=== PATIENT | female | born 1965 | race Caucasian/White ===

== ENCOUNTER 2017-06-22 16:30 | Outpatient (CLI) | payer SELFPAY ==
[~2017-06-22 16:30] MED LIST: CEFD300C3 PO; HYDR1TAB66 PO; LORA0.5T PO; OXYC-12 PO; SERT25TA PO; SULF1TAB38 PO
== END 2017-06-22 17:30 | disposition home or self-care (01) ==
LOC: SLEEP 16:30
PROVIDERS: ATTEND Otolaryngology Otolaryngology/Facial Plastic Surgery
DX: R06.83 Snoring (principal); G47.10 Hypersomnia, unspecified

== ENCOUNTER → 2017-11-07 | Outpatient (CLI) | payer BC ==
[~2017-11-07] MED LIST changes: +CATHETER FLUSH 10 ML SYR IV PRN
--- NOTE | 2017-11-07 18:10 | Diagnostic Imaging Report ---
EXAM: Nuclear medicine hepatobiliary scan INDICATION: Abdominal pain COMPARISON: There are no prior studies available for comparison. FINDINGS: This exam was performed following the administration of 5.36 mCi of Choletec and 8 ounces of Ensure. There is uptake of the radiotracer by the gallbladder before 30 minutes. This would rule against the diagnosis of acute cholecystitis. There is also extension of the radiotracer into the small bowel indicating that the common bile duct is nonobstructed. The ejection fraction is 56.5% (normal greater than 35%). IMPRESSION: 1. There is no evidence for acute cholecystitis or for obstruction of the common bile duct. 2. The ejection fraction is 56.5% and within normal limits. Dictated by: Dictated on workstation # [id number]
== END ==
LOC: CARD 12:10
PROVIDERS: ATTEND Surgery
DX: R10.11 Right upper quadrant pain (principal)
CPT/HCPCS: 78227

== ENCOUNTER → 2018-02-07 | Outpatient (CLI) | payer BC ==
[~2018-02-07] MED LIST changes: -CATHETER FLUSH 10 ML SYR IV PRN; +IOHEXOL 350 MG/ML 150 ML (OMNIPAQUE 350) VIAL IV ONE; +NS 250 ML (IVPB) BAG IV ONE
[2018-02-07 12:16] LABS: BUN/CREATININE RATIO 22; CREATININE SERUM 0.76 MG/DL (0.60-1.30); GFR ESTIMATED > 60
--- NOTE | 2018-02-07 13:09 | Diagnostic Imaging Report ---
PROCEDURE: CT angiography of the chest with contrast. TECHNIQUE: Multiple contiguous axial images were obtained through the chest after uneventful bolus administration of intravenous contrast. Reconstructed CTA MIP acquisitions were also performed. INDICATION: Dyspnea. COMPARISON: None available. FINDINGS: Vasculature: No pulmonary emboli. No CT evidence of pulmonary hypertension or right ventricular strain. Thoracic aorta is normal in caliber. No aortic dissection or pseudoaneurysm. Heart and mediastinum: Visualized thyroid is normal. No supraclavicular, axillary, or intra-thoracic lymphadenopathy. The heart is normal in size without pericardial effusion. Normal volume of fluid within the pericardial recesses. Surgical changes at the GE junction are compatible with patient's hiatal hernia repair. No recurrent/residual hernia. Pleura: No pleural effusion or pneumothorax. Lungs and airway: No endoluminal lesion in the trachea or central bronchi. No pulmonary mass, nodule or consolidation. Upper abdomen: Allowing for the phase of contrast, no acute abnormality in the upper abdomen is seen. Nonenhancing cyst in the posterior aspect of the hepatic dome measures 1.5 x 1.4 cm. Musculoskeletal: No concerning osseous lesion. IMPRESSION: 1. No acute cardiopulmonary process. Specifically, no pulmonary emboli or acute aortic syndrome. 2. Prior hiatal hernia repair without residual/recurrent hernia. Dictated by: Dictated on workstation # [id number]
== END ==
LOC: RAD 11:47
PROVIDERS: ATTEND Internal Medicine Critical Care Medicine
DX: R06.00 Dyspnea, unspecified (principal); Z98.890 Other specified postprocedural states
CPT/HCPCS: 36415; 71275; 82565; 84520

== ENCOUNTER → 2018-02-08 | Outpatient (CLI) | payer BC ==
[~2018-02-08] MED LIST changes: -IOHEXOL 350 MG/ML 150 ML (OMNIPAQUE 350) VIAL IV ONE; -NS 250 ML (IVPB) BAG IV ONE; +RT-ALBUTEROL SULF 2.5 MG/3 ML PRE-MIX VIAL INH ONE
== END ==
LOC: RT 11:39
PROVIDERS: ATTEND Nurse Practitioner Family
DX: R06.00 Dyspnea, unspecified (principal)
CPT/HCPCS: 94060; 94726; 94729

== ENCOUNTER 2018-11-13 15:41 | Emergency (ER) | payer BC ==
[~2018-11-13] VITALS: Ht 160 cm; Wt 77.1 kg
[~2018-11-13 15:41] MED LIST changes: -RT-ALBUTEROL SULF 2.5 MG/3 ML PRE-MIX VIAL INH ONE
[2018-11-13] MEDS ORDERED: HYOSCYAMINE 0.125 MG (LEVSIN) TAB SL ONE (16:15)
[2018-11-13] MEDS ORDERED: NS IV 1000 ML 1,000 ML IV STA (16:15)
[2018-11-13] MEDS ORDERED: ONDANSETRON 4 MG/2 ML (SDV) Z0FRAN IVP ONE (16:15)
[2018-11-13 16:23] LABS: BASOPHILS % (AUTO) 0 % (0-10); EOSINOPHILS # (AUTO) 0.1 10^3/uL (0.0-0.3); EOSINOPHILS % (AUTO) 1 % (0-10); HEMATOCRIT 42 % (35-52); HEMOGLOBIN 14.3 G/DL (11.5-16.0); LYMPHOCYTES # (AUTO) 0.3 X 10^3 (1.0-4.0); LYMPHOCYTES % (AUTO) 5 % (12-44); MEAN CORPUSCULAR HEMOGLOBIN 29 PG (25-34); MEAN CORPUSCULAR HGB CONC 34 G/DL (32-36); MEAN CORPUSCULAR VOLUME 86 FL (80-99); MONOCYTES # (AUTO) 0.3 X 10^3 (0.0-1.0); MONOCYTES % (AUTO) 4 % (0-12); NEUTROPHILS # (AUTO) 5.3 X 10^3 (1.8-7.8); NEUTROPHILS % (AUTO) 90 % (42-75); PLATELET COUNT 186 10^3/uL (130-400)
--- NOTE | 2018-11-13 16:44 | ED Abdominal Pain ---
General Chief Complaint: Abdominal/GI Problems Stated Complaint: FEVER/STOMACH PAIN/DIARRHEA Nursing Triage Note: PATIENT HERE WITH COMPLAINTS OF "FLU SYMPTOMS." STATES THAT SEVERE UPPER ABDOMINAL PAINS, FEVER, DIARRHEA, AND BODY ACHES SINCE 3 AM TODAY. Sepsis Screen: No Definite Risk Source of Information: Patient Exam Limitations: No Limitations History of Present Illness Date Seen by Provider: Nov 13, 2018 Time Seen by Provider: 14:12 Initial Comments Here with report of ear fullness, upper abdominal pain, nausea and diarrhea since 3 AM this morning. Reports daughter, and son all have similar symptoms. She and her daughter both started with symptoms at 3 AM. was shortly before that and son had it for a few days. Denies blood in her urine or stools. She states she can't vomit because of previous hiatal hernia repair. Complains of some lower back pain. Timing/Duration: 12-24 Hours Severity/Quality: Moderate, Aching, Cramping Location: Epigastric, Generalized Abdomen Radiation: RLQ, LLQ, Back Activities at Onset: None Modifying Factors: Worsens With Eating; Improves With Resting Associated Symptoms: Back Pain; No Chest Pain; Fever/Chills, Fatigue, Nausea/ Vomiting; No Shortness of Air; Weakness Allergies and Home Medications Allergies Coded Allergies: Penicillins (Unverified Allergy, N/V, 07/03/10) Sulfamethoxazole (Unverified Allergy, N/V, 07/03/10) trimethoprim (Unverified Allergy, N/V, 07/03/10) Home Medications Cefdinir 300 Mg Capsule, 1 EACH PO BID, (Reported) Hydrocodone Bit/Acetaminophen 1 Each Tablet, 1 EACH PO Q6 PRN, (Reported) Lorazepam 0.5 Mg Tablet, 0.5 MG PO NEEDED, (Reported) Ondansetron 4 Mg Tab.rapdis, 4 MG PO Q6H PRN for NAUSEA/VOMITING Prescribed by: WHITNEY CHISHOLM on 11/13/181751 Oxycodone Hcl/Acetaminophen 1 Each Tablet, 1-2 EACH PO Q4H PRN, (Reported) NEEDED FOR PAIN Trimethoprim/Sulfamethoxazole 1 Ea Tablet, 1 EA PO BID, (Reported) Patient Home Medication List Home Medication List Reviewed: Yes Review of Systems Review of Systems Constitutional: see HPI, chills; No fever EENTM: Ear Pain Respiratory: Denies Cough, Denies Shortness of Air Cardiovascular: Denies Chest Pain, Denies Edema Gastrointestinal: Abdominal Pain, Diarrhea, Nausea; Denies Vomiting Genitourinary: Denies Burning; Pain Musculoskeletal: back pain, joint pain, muscle pain Skin: no symptoms reported Psychiatric/Neurological: No Symptoms Reported All Other Systems Reviewed Negative Unless Noted: Yes Past Jtdmmms-Pihuvc-[place]xut Hx Past Med/Social Hx: Reviewed Nursing Past Med/Soc Hx Patient Social History Alcohol Use: Denies Use Recreational Drug Use: No Smoking Status: Never a Smoker 2nd Hand Smoke Exposure: No Recent Foreign Travel: No Contact w/Someone Who Travel: No Recent Infectious Disease Expo: No Recent Hopitalizations: Yes (SURGERIES) Physical Abuse: No Sexual Abuse: No Immunizations Up To Date Date of Influenza Vaccine: Jun 18, 2011 Past Medical History Surgeries: Yes Respiratory: No Cardiac: Yes (MITRAL VALVE PROLAPSE) Neurological: No Reproductive Disorders: Yes (ENDOMETRIOSIS) Sexually Transmitted Disease: No Gastrointestinal: No Musculoskeletal: No Endocrine: No Psychosocial: Yes Blood Disorders: No Family Medical History Reviewed Nursing Family Hx Physical Exam Vital Signs Vital Signs - First Documented 11/13/18 15:57 Temp 99.0 Pulse 85 Resp 18 B/P (MAP) 126/88 (101) Pulse Ox 97 Capillary Refill : Less Than 3 Seconds Height/Weight/BMI Height: 5'3.00" Weight: 170lbs. 0oz. 77.579508bi; BMI Method:Stated General Appearance: WD/WN, no apparent distress HEENT: PERRL/EOMI, pharynx normal Neck: full range of motion, supple Respiratory: lungs clear, normal breath sounds Cardiovascular: regular rate, rhythm, no murmur Peripheral Pulses: 2+ Dorsalis Pedis (R), 2+ Left Dors-Pedis (L), 2+ Radial Pulses (R), 2+ Radial Pulses (L) Gastrointestinal: soft; No guarding, No rebound; tenderness (mild diffusely greatest in the epigastric region) Extremities: non-tender, normal inspection Back: normal inspection, no CVA tenderness, no vertebral tenderness Neurologic/Psychiatric: alert, oriented x 3 Skin: normal color, warm/dry Progress/Results/Core Measures Results/Orders Lab Results Laboratory Tests Test 11/13/18 16:15 11/13/18 17:20 Range/Units White Blood Count 6.0 4.3-11.0 10^3/uL Red Blood Count 4.91 4.35-5.85 10^6/uL Hemoglobin 14.3 11.5-16.0 G/DL Hematocrit 42 35-52 % Mean Corpuscular Volume 86 80-99 FL Mean Corpuscular Hemoglobin 29 25-34 PG Mean Corpuscular Hemoglobin Concent 34 32-36 G/DL Red Cell Distribution Width 13.0 10.0-14.5 % Platelet Count 186 130-400 10^3/uL Mean Platelet Volume 10.0 7.4-10.4 FL Neutrophils (%) (Auto) 90 H 42-75 % Lymphocytes (%) (Auto) 5 L 12-44 % Monocytes (%) (Auto) 4 0-12 % Eosinophils (%) (Auto) 1 0-10 % Basophils (%) (Auto) 0 0-10 % Neutrophils # (Auto) 5.3 1.8-7.8 X 10^3 Lymphocytes # (Auto) 0.3 L 1.0-4.0 X 10^3 Monocytes # (Auto) 0.3 0.0-1.0 X 10^3 Eosinophils # (Auto) 0.1 0.0-0.3 10^3/uL Basophils # (Auto) 0.0 0.0-0.1 10^3/uL Neutrophils % (Manual) 89 % Lymphocytes % (Manual) 7 % Monocytes % (Manual) 1 % Eosinophils % (Manual) 1 % Reactive Lymphocytes 2 % Blood Morphology Comment NORMAL Sodium Level 138 135-145 MMOL/L Potassium Level 3.8 3.6-5.0 MMOL/L Chloride Level 104 98-107 MMOL/L Carbon Dioxide Level 23 21-32 MMOL/L Anion Gap 11 5-14 MMOL/L Blood Urea Nitrogen 20 H 7-18 MG/DL Creatinine 0.85 0.60-1.30 MG/DL Estimat Glomerular Filtration Rate > 60 BUN/Creatinine Ratio 24 Glucose Level 105 70-105 MG/DL Calcium Level 9.2 8.5-10.1 MG/DL Corrected Calcium 8.8 8.5-10.1 MG/DL Total Bilirubin 0.5 0.1-1.0 MG/DL Aspartate Amino Transf (AST/SGOT) 25 5-34 U/L Alanine Aminotransferase (ALT/SGPT) 21 0-55 U/L Alkaline Phosphatase 79 40-136 U/L Total Protein 7.0 6.4-8.2 GM/DL Albumin 4.5 3.2-4.5 GM/DL Lipase 14 8-78 U/L Urine Color YELLOW Urine Clarity SLIGHTLY CLOUDY Urine pH 5 5-9 Urine Specific [place] 1.015 L 1.016-1.022 Urine Protein 1+ H NEGATIVE Urine Glucose (UA) NEGATIVE NEGATIVE Urine Ketones 2+ H NEGATIVE Urine Nitrite NEGATIVE NEGATIVE Urine Bilirubin NEGATIVE NEGATIVE Urine Urobilinogen NORMAL NORMAL MG/DL Urine Leukocyte Esterase 1+ H NEGATIVE Urine RBC (Auto) NEGATIVE NEGATIVE Urine RBC NONE /HPF Urine WBC NONE /HPF Urine Squamous Epithelial Cells RARE /HPF Urine Crystals NONE /LPF Urine Bacteria TRACE /HPF Urine Casts NONE /LPF Urine Mucus NEGATIVE /LPF Urine Culture Indicated NO Micro Results Microbiology 11/13/18 Influenza Types A,B Antigen (MARISELA) - Final, Complete My Orders Orders - WHITNEY CHISHOLM MD Cbc With Automated Diff (11/13/18 16:15) Comprehensive Metabolic Panel (11/13/18 16:15) Lipase (11/13/18 16:15) Ua Culture If Indicated (11/13/18 16:15) Influenza A And B Antigens (11/13/18 16:15) Ondansetron Injection (Zofran Injectio (11/13/18 16:15) Ns Iv 1000 Ml (Sodium Chloride 0.9%) (11/13/18 16:15) Hyoscyamine Sl Tablet (Levsin Sl Tablet) (11/13/18 16:15) Saline Lock/Iv-Start (11/13/18 16:15) Manual Differential (11/13/18 16:15) Ketorolac Injection (Toradol Injection) (11/13/18 17:36) Medications Given in ED Current Medications Medications Dose Ordered Sig/Marty Route Start Time Stop Time Status Last Admin Dose Admin Hyoscyamine Sulfate 0.125 mg ONCE ONCE SL 11/13/18 16:15 11/13/18 16:18 DC 11/13/18 16:25 0.125 MG Ondansetron HCl 4 mg ONCE ONCE IVP 11/13/18 16:15 11/13/18 16:18 DC 11/13/18 16:26 4 MG Vital Signs/I&O 11/13/18 15:57 Temp 99.0 Pulse 85 Resp 18 B/P (MAP) 126/88 (101) Pulse Ox 97 Blood Pressure Mean: 101 Progress Progress Note : Progress Note Seen and evaluated. IV, labs, UA, normal saline 1 L bolus and influenza screen ordered. Zofran 4 mg IV and Levsin 0.125 mg by mouth ordered. Monitor patient. Toradol 30 mg IV for bodyaches. 1750: No significant findings on evaluation. Likely viral in etiology. This was discussed with the patient. She has been able to tolerate sips of fluid. I will send prescription for ondansetron. Discharged home with return precautions. Patient verbalize understanding instructions and agreement with plan. Departure Impression Primary Impression: Nausea and vomiting Qualified Codes: R11.2 - Nausea with vomiting, unspecified Additional Impression: Epigastric abdominal pain Disposition: HOME, SELF-CARE Condition: Improved Departure-Patient Inst. Decision time for Depature: 17:50 Referrals: ANNY ALFRED MD (PCP/Family) Primary Care Physician Patient Instructions: Acute Abdomen (Belly Pain), Adult (DC), Nausea and Vomiting, Adult (DC) Add. Discharge Instructions: All discharge instructions reviewed with patient and/or family. Voiced understanding. Clear liquid diet for next 24 hours and then advance as tolerated. When you start taking fluids, keep that light including crackers, toast, applesauce or Jell-O. You can advance from there went tolerated. Follow up with your Dr. in a few days for recheck. Return for worse pain, fever, vomiting, weakness, breathing problems or other concerns as needed. You may take epzl-fgf-ofvkumv Zantac/ranitidine 150 mg daily as needed for stomach upset. You may also try kxhy-mnj-ohdokwv omeprazole 20 mg daily as needed for stomach upset Scripts Ondansetron (Ondansetron Odt) 4 Mg Tab.rapdis 4 MG PO Q6H PRN for NAUSEA/VOMITING, #8 TAB 0 Refills Prov: WHITNEY CHISHOLM MD 11/13/18 WHITNEY CHISHOLM MD Nov 13, 2018 16:44
[2018-11-13 16:45] LABS: EOSINOPHILS % (MANUAL) 1 %; LYMPHOCYTES % (MANUAL) 7 %; MONOCYTES % (MANUAL) 1 %; NEUTROPHILS % (MANUAL) 89 %
[2018-11-13 16:46] LABS: RBC MORPH NORMAL; REACTIVE LYMPHOCYTES 2 %
[2018-11-13 16:50] LABS: ALANINE AMINOTRANSFERASE 21 U/L (0-55); ALBUMIN 4.5 GM/DL (3.2-4.5); ALKALINE PHOSPHATASE 79 U/L (40-136); BILIRUBIN,TOTAL 0.5 MG/DL (0.1-1.0); BUN/CREATININE RATIO 24; CALCIUM 9.2 MG/DL (8.5-10.1); CARBON DIOXIDE 23 MMOL/L (21-32); CHLORIDE 104 MMOL/L (98-107); CREATININE SERUM 0.85 MG/DL (0.60-1.30); GFR ESTIMATED > 60; GLUCOSE 105 MG/DL (70-105); LIPASE 14 U/L (8-78); POTASSIUM 3.8 MMOL/L (3.6-5.0); SODIUM 138 MMOL/L (135-145)
[2018-11-13 17:32] LABS: BILIRUBIN,URINE NEGATIVE (NEGATIVE); CLARITY,URINE SLIGHTLY CLOUDY; COLOR,URINE YELLOW; GLUCOSE, URINE (UA) NEGATIVE (NEGATIVE); KETONES,URINE 2+ (NEGATIVE); LEUKOCYTE ESTERASE ,URINE 1+ (NEGATIVE); NITRITE,URINE NEGATIVE (NEGATIVE); PH,URINE 5 (5-9); PROTEIN,URINE 1+ (NEGATIVE); UROBILINOGEN,URINE NORMAL (NORMAL)
[2018-11-13] MEDS ORDERED: KETOROLAC 30 MG/ML VIAL IVP STA (17:36)
[2018-11-13 17:41] LABS: BACTERIA,URINE TRACE /HPF
[2018-11-13 17:42] LABS: SQUAMOUS EPITHELIAL CELL,UR RARE /HPF
[2018-11-13] MEDS ORDERED: ONDA4TAB11 PO (17:52)
[2018-11-13 18:15] VITALS: BP 126/88
== END 2018-11-13 18:15 | disposition home or self-care (01) ==
LOC: EDUNIT# 15:41 → ER 15:42
DX: R10.13 Epigastric pain (principal); R11.2 Nausea with vomiting, unspecified; Z88.0 Allergy status to penicillin; Z88.8 Allergy status to other drugs, medicaments and biological substances; Z88.2 Allergy status to sulfonamides; Z98.890 Other specified postprocedural states; Z87.448 Personal history of other diseases of urinary system
CPT/HCPCS: 36415; 80053; 81000; 83690; 85007; 85027; 87804

== ENCOUNTER → 2023-06-02 | Outpatient (CLI) | payer BC ==
[~2023-06-02] MED LIST changes: +CATHETER FLUSH 10 ML SYR IVP PRN; +ONDA4TAB11 PO
--- NOTE | 2023-06-02 14:52 | Diagnostic Imaging Report ---
INDICATION: Right upper quadrant pain. The patient was administered 5.4 mCi technetium 99m Choletec and imaging over the abdomen was performed. At 1 hour, the patient ingested 8 ounces of Ensure and the gallbladder ejection fraction was calculated. There is homogeneous uptake of activity by the liver with prompt excretion of activity into the gallbladder and common duct. There is normal passage of activity into the small bowel. Gallbladder ejection fraction is normal at 69%. IMPRESSION: Normal HIDA scan and gallbladder ejection fraction. Dictated by: Dictated on workstation # [id number]
== END ==
LOC: CARD 11:10
PROVIDERS: ATTEND Family Medicine
DX: R10.11 Right upper quadrant pain (principal)
CPT/HCPCS: 78227; A9537

== ENCOUNTER 2023-06-09 05:34 | Outpatient (CLI) | payer BC ==
[~2023-06-09] VITALS: Ht 160 cm; Wt 79.5 kg
[~2023-06-09 05:34] MED LIST changes: -CATHETER FLUSH 10 ML SYR IVP PRN
[2023-06-09] MEDS ORDERED: TRM50T PO (14:00)
[2023-06-09] MEDS ORDERED: LORA-1358 PO (14:00)
[2023-06-09] MEDS ORDERED: ACYC400T21 PO (14:00)
[2023-06-09] MEDS ORDERED: SERT-413 PO (14:00)
[2023-06-09] MEDS ORDERED: LORA1CAP PO (14:00)
[2023-06-09] MEDS ORDERED: LORA-404 PO (14:00)
== END 2023-06-09 14:26 | disposition home or self-care (01) ==
LOC: PREOP 05:34
PROVIDERS: ATTEND Surgery
DX: Z01.818 Encounter for other preprocedural examination (principal)

== ENCOUNTER 2023-06-16 10:47 | Day surgery (SDC) | payer BC ==
[2023-06-16] VITALS (16 sets, daily range): BP systolic 99–141; BP diastolic 69–102
[~2023-06-16] VITALS: Ht 160 cm; Wt 79.5 kg
[~2023-06-16 10:47] MED LIST changes: +ACYC400T21 PO; +LORA-1358 PO; +LORA-404 PO; +LORA1CAP PO; +SERT-413 PO; +TRM50T PO
[2023-06-16] MEDS ORDERED: LIDOCAINE 2% w/EPI 1:100,000 20 ML VIAL ONE (11:26)
[2023-06-16] MEDS ORDERED: CLINDAMYCIN 600 MG/50 ML IVPB 50 ML IV ONE ×2 (11:30→11:45)
[2023-06-16] MEDS ORDERED: ONDANSETRON INJECTION 4 MG/2 ML (SDV) ONE ×2 (11:56→12:49)
[2023-06-16] MEDS ORDERED: SCOPOLAMINE 1.5 MG PATCH ONE (11:56)
[2023-06-16] MEDS ORDERED: FAMOTIDINE INJ 20MG/2ML VIAL ONE (11:57)
[2023-06-16] MEDS ORDERED: SCOPOLAMINE 1.5 MG PATCH TD ONE (12:00)
[2023-06-16] MEDS: LACTATED RINGERS 1,000 ML 1,000 ML IV PRN ×2 (12:00→13:00)
[2023-06-16] MEDS ORDERED: FAMOTIDINE INJ 20MG/2ML VIAL IVP ONE (12:00)
[2023-06-16] MEDS ORDERED: ONDANSETRON INJECTION 4 MG/2 ML (SDV) IVP ONE (12:00)
[2023-06-16] MEDS ORDERED: MIDAZOLAM INJ 2 MG/2 ML VIAL ONE (12:01)
[2023-06-16] MEDS ORDERED: fentaNYL INJECTION 100 MCG/2 ML VIAL ONE (12:01)
--- NOTE | 2023-06-16 12:07 | Progress Note-Pre Operative ---
Pre-Operative Progress Note Date of Available H&P: Jun 16, 2023 Date H&P Reviewed: Jun 16, 2023 Time H&P Reviewed: 11:30 History & Physical: No changes noted Pre-Operative Diagnosis: sx biliary dyskinesia KIANNA WAGNER MD Jun 16, 2023 12:07
--- NOTE | 2023-06-16 12:09 | Discharge Inst-Surgical ---
D/C Lap Instructions-BERNARD New, Converted, or Re-Newed RX: RX on Chart Follow Up Appt in 2 weeks Activity as tolerated No driving for 24 hours No driving while on pain medications Incentive Spirometry use every 2 hours while awake Regular Diet Symptoms to Report: Fever over 101 degree F, Nausea/Vomiting Infection Signs and Symptoms to report: Increased redness, Foul odor of wound, Increased drainage Bathing instructions: May shower Operative Area Clean/Dry; Keep incision clean/dry If any problems/questions: Contact your physician or go to Emergency Room KIANNA WAGNER MD Jun 16, 2023 12:09
[2023-06-16] MEDS ORDERED: ONDANSETRON INJECTION 4 MG/2 ML (SDV) IVP PRN ×2 (12:15→13:45)
[2023-06-16] MEDS ORDERED: morphine INJ 10 MG/ML 1ML (SYR OR VIAL) IVP PRN ×2 (12:15)
[2023-06-16] MEDS ORDERED: ACETAMINOPHEN 325 MG TABLET PO PRN (12:15)
[2023-06-16] MEDS ORDERED: ROCURONIUM 50 MG/5 ML VIAL IV ONE (12:49)
[2023-06-16] MEDS ORDERED: proPOfol INJECTION 200 MG/20 ML VIAL IV ONE (12:49)
[2023-06-16] MEDS ORDERED: dexAMETHasone INJ 10 MG/ML 1 ML VIAL ONE (12:49)
[2023-06-16] MEDS ORDERED: LIDOCAINE PF 2% 5 ML VIAL ONE (12:49)
[2023-06-16] MEDS ORDERED: GLYCOPYRROLATE INJ 0.2 MG/ML 2 ML VIAL ONE (13:12)
[2023-06-16] MEDS ORDERED: NEOSTIGMINE 1 MG/1ML 10 ML VIAL ONE (13:12)
--- NOTE | 2023-06-16 13:12 | Progress Note-Post Operative ---
Post-Operative Progess Note Surgeon (s)/Oracle R12 Developer (s) Surgeon KIANNA WAGNER MD Oracle R12 Developer: none Pre-Operative Diagnosis sx biliary dyskinesia Post-Operative Diagnosis same Procedure & Operative Findings Date of Procedure 06/16/23 Procedure Performed/Findings laparoscopic cholecystectomy Anesthesia Type get Estimated Blood Loss Estimated blood loss (mL): minimal Specimens/Packing Specimens Removed gallbladder KIANNA WAGNER MD Jun 16, 2023 13:12
[2023-06-16] MEDS ORDERED: morphine INJ 10 MG/ML 1ML (SYR OR VIAL) IVP ONE (13:45)
[2023-06-16] MEDS ORDERED: PROMETHAZINE INJ 25 MG/ML VIAL IVP ONE (13:45)
--- NOTE | 2023-06-16 13:45 | Anesthesia-General Post-Op ---
General Patient Condition Mental Status/LOC: Same as Preop Cardiovascular: Satisfactory Nausea/Vomiting: Absent Respiratory: Satisfactory Pain: Controlled Complications: Absent Post Op Complications Complications None Follow Up Care/Instructions Patient Instructions None needed. Anesthesia/Patient Condition Patient Condition Patient is doing well, no complaints, stable vital signs, no apparent adverse anesthesia problems. No complications reported per nursing. JOCELYN VERNON CRNA Jun 16, 2023 13:45
[2023-06-16] MEDS ORDERED: morphine INJ 10 MG/ML 1ML (SYR OR VIAL) ONE (13:47)
[2023-06-16] MEDS ORDERED: HYDROmorphone INJECTION 2 MG/ML VIAL ONE (14:01)
[2023-06-16] MEDS ORDERED: HYDROmorphone INJECTION 2 MG/ML VIAL IV ONE (14:15)
--- NOTE | 2023-06-16 19:53 | OPERATIVE REPORT ---
DATE OF SERVICE: 06/16/2023 ATTENDING PRIMARY CARE PHYSICIAN: Dr. Sue Bateman. PREOPERATIVE DIAGNOSIS: Symptomatic biliary dyskinesia. POSTOPERATIVE DIAGNOSIS: Symptomatic biliary dyskinesia. PROCEDURE: Laparoscopic cholecystectomy. SURGEON: Kianna Wagner MD ANESTHESIA: General endotracheal. Distended gallbladder with thick bile. No gallstones. Intact previous recurrent hiatal hernia repair with mesh. DISPOSITION: The patient tolerated the procedure well. INDICATIONS: The patient is a 58-year-old female who has had 2-to-3-year history of episodes of abdominal bloating, crampy right upper abdominal quadrant pain with radiation towards the back as well as nausea, usually after eating meals. She has had a longstanding history of gastroesophageal reflux disease and underwent a hiatal hernia repair approximately 6 years ago. This reoccurred and then she underwent revisional repair with mesh at a different institution. Due to these previous surgeries for reflux, she felt that her symptoms may have been related to this. Upon further questioning, she had also reported with greasy types of foods. She would feel the abdominal distention as well as the pain; however, would also feel nausea; however, unable to vomit due to her previous hiatal hernia repair. An ultrasound was performed, which did not show any gallstones; however, HIDA scan was performed, which did elicit severe reproduction of symptoms with abdominal bloating, pain as well as nausea consistent with symptomatic biliary dyskinesia. DESCRIPTION OF PROCEDURE: The patient was brought to the operating room, laid supine on the table. After adequate IV pain and sedative medications and general endotracheal intubation, the abdomen was prepped and draped in standard surgical fashion. A 2% lidocaine with epinephrine was then used to anesthetize the overlying skin in the left upper abdominal quadrant and a transverse skin incision made using a #15 blade. An 0 silk suture was applied to the medial aspect of the incision for retraction and a Veress needle inserted with a low opening pressure of 0 mmHg. The abdomen was then insufflated to 15 mmHg pressure. The Veress needle removed and a 5 mm trocar placed followed by a 5 mm 45-degree angle laparoscope visualizing the peritoneal cavity. A 4-quadrant abdominal exploration was performed. There was a distended gallbladder, no gallbladder wall thickening. After placement of the other ports, we were able to look underneath the left lobe of the liver and it appeared that the previous hiatal hernia repair as well as mesh was then tacked with no reoccurrence. Under direct visualization, we then proceeded to place a supraumbilical 10 mm port after the skin and peritoneal lining were anesthetized using 0.5% Marcaine with epinephrine and a transverse skin incision made using a #15 blade. In a similar manner, a right upper abdominal quadrant 5 mm port was placed. The patient was then placed in reverse Trendelenburg position as well as plane right side up, left side down. The fundus of the gallbladder was then retracted anteriorly and superiorly. There were omental adhesions to the body of the gallbladder, which were taken down with blunt dissection as well as electrocautery on the hook instrument. The hepatoduodenal ligament was then dissected with electrocautery as well as blunt dissection using the hook instrument as well as a [place] dissector. The entire critical view of safety was identified including the triangle of Calot as well as the cystic duct and artery as the only 2 structures going into the gallbladder as well as the cystic plate behind the proximal gallbladder. A timeout was then taken and the cystic duct and artery were then clipped proximally and distally and cut with EndoShears. The gallbladder was then dissected off the liver bed using cautery on the hook instrument with visualization of good hemostasis as well as no leaking ducts of Luschka. The gallbladder was removed through the 10 mm port site using an EndoCatch bag. The 10 mm port site fascia and peritoneum were then closed under direct visualization using a Rod-Johnny device and an 0 Vicryl suture. The abdomen was desufflated and the remaining ports removed. All skin incisions were closed using 4-0 Monocryl running subcuticular sutures. Wounds were then cleaned and covered with Dermabond. The patient tolerated the procedure well. We will start IV and oral pain medication as well as a clear liquid diet. Once tolerating clears with good pain control with oral pain medications, ambulating well, we will discharge her home where she will be instructed to do no heavy lifting or exertion for the next 2 weeks. Job ID: [id number] DocumentID: [id number] Dictated Date: 06/16/2023 13:24:43 Trailer Technician Date: 06/16/2023 19:50:00 Dictated By: KIANNA WAGNER MD [facility]
== END 2023-06-16 15:54 | disposition home or self-care (01) ==
LOC: SDC 10:47
PROVIDERS: ATTEND Surgery
DX: K81.1 Chronic cholecystitis (principal); K82.8 Other specified diseases of gallbladder; E66.9 Obesity, unspecified; Z68.31 Body mass index [BMI] 31.0-31.9, adult
CPT/HCPCS: 87081